=== PATIENT | female | born 1980 | race Caucasian/White ===

== ENCOUNTER 2019-04-08 19:09 | Emergency (ER) | payer OTHER, SELFPAY ==
[2019-04-08 19:10] VITALS: BP 124/74; PULSE 85; RESP 17; TEMP 36.3; O2SAT 97; BMI 33.0
--- NOTE | 2019-04-08 19:30 | RAD_ITS ---
STUDY: X-RAY - RIGHT ANKLE REASON FOR EXAM: Female, 38 years old. Pain TECHNIQUE: 3 view(s) of the ankle. COMPARISON: None. FINDINGS: There is a small osseous fragment at the superior aspect of the navicular with overlying soft tissue swelling. Plantar calcaneal spurring is present. There are no radiodense foreign bodies. RAD/Ankle min 3 Views IMPRESSION: No fracture. Small osseous fragment at the superior aspect of the navicular with overlying soft tissue swelling, suggesting navicular avulsion injury. Correlate for point tenderness. Plantar calcaneal spurring. Electronically Signed: Bradley Crawford, at 20:03 EDT Tel , Service support ,
--- NOTE | 2019-04-08 19:50 | RAD_ITS ---
STUDY: X-RAY - RIGHT FOOT CLINICAL: Female, 38 years old. Pain TECHNIQUE: 3 view(s) of the foot. COMPARISON: None. FINDINGS: There are tiny osseous fragments at the superior aspect of the navicular and at the lateral foot. There is associated soft tissue swelling. There are no significant degenerative changes. There are no radiodense foreign bodies. RAD/Foot min 3 Views IMPRESSION: Tiny osseous fragments at the superior aspect of the navicular and at the lateral foot, concerning for avulsion injury. MRI is suggested for further assessment. Electronically Signed: Bradley Crawford, at 20:37 EDT Tel , Service support ,
[2019-04-08] MEDS: Ibuprofen 600 MG Tablet PO (20:21)
--- NOTE | 2019-04-08 20:53 | ED.DCSUM_ITS ---
- ER Visit Summary Date of Service: 04/08/19 Chief Complaint: Injury to right ankle and foot History of Present Illness: The patient is a 38 F who injured her right ankle and foot today. She jumped up on a piece of equipment and had an inversion injury. She has pain over the lateral part of the foot. It is worse with movement. She denies any previous injuries or surgeries. She took nothing for this at home. Physical Examination: Vital signs reviewed. Right ankle and foot exam reveals tenderness over the ATFL area. She also has tenderness in the fifth metatarsal area. There is swelling and ecchymosis noted around this area. She has painful range of motion. She has 2+ DP pulses. Test Results: X-rays reveal a questionable navicular a avulsion fracture Emergency Department Course and Treatment: Patient requested ibuprofen for pain. X-rays show a questionable avulsion fracture of the navicular bone. She was placed in a short leg posterior splint. She will be given crutches and made nonweightbearing. She will take ibuprofen at home per her request. She will be given orthopedic follow-up Treatment Plan: [] Disposition: Discharge Impression: Right navicular avulsion fracture This note was generated with [employer] dictation software. It may contain incorrect words, spelling, and punctuation that were not noted in review of the chart prior to signing ED Disposition - Plan for ED Patient: Disposition: Home or Assisted Living Instructions: ED Fx Foot Referrals: Fatou Bond DO [Primary Care Provider] - Zelalem Staley DO [STAFF PHYSICIAN] -
[2019-04-08 21:11] VITALS: PULSE 82; RESP 18; O2SAT 100
== END 2019-04-08 21:12 | disposition home or self-care (01) ==
PROVIDERS: Emergency Provider Emergency Medicine; Family Provider Internal Medicine; PCP Internal Medicine
DX: S92.251A Displaced fracture of navicular [scaphoid] of right foot, initial encounter for closed fracture (principal); X50.1XXA Overexertion from prolonged static or awkward postures, initial encounter; Y93.39 Activity, other involving climbing, rappelling and jumping off; Y92.9 Unspecified place or not applicable
CPT/HCPCS: 29515; 73610; 73630; 99284

== ENCOUNTER → 2019-04-11 | Outpatient (CLI) | payer OTHER, SELFPAY ==
[2019-04-08 19:10] VITALS: BMI 33.0
--- NOTE | 2019-04-11 16:00 | MRI_ITS ---
STUDY: MRI RIGHT ANKLE WITHOUT CONTRAST REASON FOR EXAM: Female, 38 years old. Pain. Recent fall. Abnormal x-ray. Evaluate navicular TECHNIQUE: Standardized fat and water weighted pulse sequences were obtained in all 3 orthogonal planes. COMPARISON: X-ray April 08, 2019 FINDINGS: There is soft tissue swelling of the dorsum of the foot. Normal posterior tibialis tendon. Normal flexor digitorum longus tendon. Normal flexor hallucis longus tendon. Normal peroneus longus and brevis tendons. Normal tibialis anterior tendon. Normal extensor hallucis longus tendon. Normal extensor digitorum longus tendons. Normal Achilles tendon and teno-osseous insertion. Normal plantar fascia. Normal plantar calcaneal tubercles. Normal intrinsic muscles of the rearfoot. Normal distal tibiofibular syndesmotic ligamentous complex. Normal lateral ligamentous complex. Normal subtalar ligaments and sinus tarsi. Normal deltoid ligamentous complexes. Normal plantar calcaneonavicular (spring) ligament. There is a joint effusion of the tibiotalar articulation with capsular distension. Normal talar dome. Normal subtalar articulations. Normal talonavicular articulation. Normal calcaneocuboid articulation. Normal navicular-cuneiform articulations. MRI/Lower Ext Joint Only (Routine) IMPRESSION: No focal fracture seen. Soft tissue swelling. Electronically Signed: Aung Deshpande MD at 9:28 EDT , Service support ,
== END | disposition home or self-care (01) ==
LOC: MRI 15:53
PROVIDERS: Family Provider Internal Medicine; PCP Internal Medicine; Referring Provider Podiatrist Foot & Ankle Surgery; Visit Provider Podiatrist Foot & Ankle Surgery
DX: S93.491A Sprain of other ligament of right ankle, initial encounter (principal)
CPT/HCPCS: 73721